=== PATIENT | female | born 1940 | race Caucasian/White ===

== ENCOUNTER 2020-12-12 08:46 | Outpatient (REF) | payer MEDICARE, SELFPAY ==
--- NOTE | ~2020-12-12 | MR_ITS ---
EXAMINATION: MR LUMBAR SPINE WITHOUT CONTRAST CLINICAL INFORMATION: Lumbosacral spinal stenosis. COMPARISON: MRI scan of the lumbar spine 09/10/2018. TECHNIQUE: MRI of the lumbar spine was obtained using routine sequences without contrast. FINDINGS: VERTEBRAL BODIES AND PARASPINAL STRUCTURES: There is a mild to moderate levoscoliosis. There is a mild anterolisthesis of L4 on L5. There is a retrolisthesis of L5 on S1, there is a mild leftward subluxation of L3 on L4. There is multilevel narrowing of intervertebral disc height throughout the lumbar spine with loss of signal. There are degenerative endplate contour changes with moderate edematous endplate signal seen toward the left at L4-L5, new compared to prior imaging. Vertebral body heights are maintained. There are no acute fractures. Overall, marrow signal is homogenous. The visualized retroperitoneal and pelvic structures are unremarkable. CONUS MEDULLARIS AND CAUDA EQUINA: Normal, terminating at the level of T12-L1. The lower thoracic spinal cord appears normal. The cauda equina nerve roots and filum terminale appear normal; the cauda equina nerve roots however are crowded at multiple levels due to spondylosis and facet arthropathy. SPINAL LEVELS: T11-T12: There is a posterior disc protrusion which is most prominent midline, with mild distortion of the thecal sac ventral to the conus. The neural foramina are patent bilaterally. T12-L1: There is mild bilateral facet arthropathy with ligamenta flava hypertrophy. There is a left foraminal disc protrusion impingement on the exiting left, which has developed since the prior study. There is no central stenosis. L1-L2: There is moderate bilateral facet arthropathy with ligamenta flava hypertrophy and facet joint effusions. There is a new central and left-sided disc protrusion with an extruded component extending into the left lateral recess of L1 with impingement on the traversing left L1 nerve root. There is marked narrowing of the left subarticular recess. The neural foramina are patent bilaterally. There is moderate central stenosis. L2-L3: There is moderate bilateral facet arthropathy. There is a broad-based posterior disc protrusion extending into the inferior neural foramina bilaterally without nerve root impingement. There is bilateral subarticular recesses. There is moderate central stenosis. L3-L4: There is moderate to severe bilateral facet arthropathy with ligamenta flava hypertrophy and facet joint effusions. There is a broad-based posterior disc protrusion extending far laterally on the right with impingement on the extraforaminal right L3 nerve root. There is narrowing of the bilateral subarticular recesses. There is severe central stenosis. L4-L5: There is severe bilateral facet arthropathy with ligamenta flava hypertrophy. There is a posterior disc with an extruded component centrally and toward the left, which markedly narrows the neural foramina, left greater than right. The disc protrusion extends far laterally on the left with impingement on the extraforaminal left L4 nerve root. There is marked compression of the thecal sac. There is severe central stenosis. L5-S1: There is moderate bilateral facet arthropathy. There is a broad-based posterior disc protrusion extending into the neural foramina bilaterally with impingement on the exiting L5 nerve roots. There is narrowing of the bilateral subarticular recesses with impingement on the traversing S1 nerve roots bilaterally. There is no central stenosis. MR/MR lumbar spine wo con IMPRESSION: 1. At L4-L5 there is facet arthropathy and there is a posterior disc protrusion/extrusion, which markedly narrows the neural foramina. The disc protrusion extends far laterally with impingement on the extra foraminal left L4 nerve root. There is severe central stenosis. 2. At L3-L4 there is facet arthropathy and there is a broad-based posterior disc protrusion extending far laterally without definite foraminal right L3 nerve root. There is narrowing of the subarticular recesses. There is severe central stenosis. 3. At L5-S1 is facet arthropathy and a broad-based posterior disc protrusion. There is extension into the neural foramina bilaterally with impingement on the exiting L5 nerve roots. There is also narrowing of the subarticular recesses bilaterally with impingement on the traversing S1 nerve roots bilaterally. At L1-L2 there is facet arthropathy and there is a new central and left-sided disc protrusion with an extruded component. There is narrowing of the left lateral recess of L1 with impingement traversing left L1 nerve root. Marked narrowing of the left subarticular recess.
== END 2020-12-12 08:47 | disposition home or self-care (01) ==
LOC: HO.MRI 08:46
PROVIDERS: Visit Provider Internal Medicine
DX: M48.07 Spinal stenosis, lumbosacral region (principal)
CPT/HCPCS: 72148

== ENCOUNTER 2021-01-14 09:58 | Outpatient (REF) | payer MEDICARE, SELFPAY ==
--- NOTE | 2021-01-14 14:17 | MHC.AU.ANO ---
Adult Audiological Evaluation Date of Visit: 01/14/21 Reason for Appointment: Patient suspects she may have hearing loss. She has noticed the most difficulty hearing in the car and hearing the television. Does patient feel they have a hearing loss?: Yes If Yes, Which Ear?: Both Ears When Was Hearing Difficulty First Noticed?: Around 2 years ago Has hearing been tested previously?: Yes Previous Hearing Test Results: At Dr. Loredo's office around 10 years ago- Results are not immediately available for review. Patient reports that at the time, she was told hearing aids were not needed. Hearing Handicap Inventory: HHIE SCORE: 18 Based on HHIE score, patient has: Mild to moderate perceived hearing handicap Ear History: Ear Deformity: None Reported Recent Ear Drainage: None Reported Recent Ear Pain: None Reported Family History of Hearing Loss?: No Recent Ear Infections: None Reported Ear Infections in Childhood: None Reported History of Ear Wax Buildup: None Reported Previous Ear Surgery: None Reported Bothersome Tinnitus/Ringing/Noises in Ears: None Reported Ear used on the phone: Right Ear Blocked/Full Sensation in Ear(s): None Reported History of occupational noise exposure?: No History: No Medical History: Medical History: High Blood Pressure Otoscopy: Right Ear: Unremarkable Left Ear: Unremarkable Tympanometry: Tympanometry performed due to: To assess integrity of the middle ear system Right Ear: Normal Middle Ear System (Type A) Left Ear: Normal Middle Ear System (Type A) Hearing Evaluation: Transducer(s) Used: Circumaural Headphones Method: Conventional Audiometry Stimuli Used: Pure Tones Right Ear: Description of Hearing: Normal sloping to severe sensorineural hearing loss Left Ear: Description of Hearing: Normal sloping to severe sensorineural hearing loss Speech Recognition Threshold (SRT): Method Used: Recorded Lists Stimuli Used: Spondee Words Right Ear: 35 dBHL Left Ear: 30 dBHL Word Discrimination: Method: Recorded Lists Word Lists Used: NU-6 Right Ear: 88% at 70 dBHL Left Ear: 88% at 65 dBHL Most Comfortable Level (MCL): Right Ear: 70 dBHL Left Ear: 65 dBHL QuickSIN: Tested binaurally at 65 dBHL: 6 dB SNR Loss, which suggests mild to moderately-elevated difficulty listening in noise Recommendations: Audiological re-evaluation in one year. Trial with amplification is recommended. Patient thinks she is ready for amplification, but would like to demo hearing instruments to be sure. At the moment, she is thinking she may only get a hearing aid for one ear. A pair of [employer]ca CorpeTableGrabber P50-13T Trial instruments (#[id number], [id number]) was provided for a demo. The basics of hearing aid care and use were discussed and practiced. Patient was encouraged to try using both hearing aids, as well as trying just the right and just the left, to see which set up she would prefer. A hearing aid follow-up was scheduled to see how the demo went and further discuss hearing aid options. Diagnosis: Primary Diagnosis: H90.3 Bilateral Sensorineural Hearing Loss Services Performed: Comprehensive Audiological Evaluation (CPT 50185), Tympanometry (CPT 62861) Signature: Provider: Horacio Melgar, CCC-A
== END 2021-01-14 09:59 | disposition home or self-care (01) ==
LOC: HO.SH 09:58
PROVIDERS: Visit Provider Internal Medicine
DX: H90.3 Sensorineural hearing loss, bilateral (principal)
CPT/HCPCS: 92557; 92567

== ENCOUNTER 2021-01-21 15:31 | Outpatient (REF) | payer SELFPAY | END 2021-01-21 15:32 | disposition home or self-care (01) | LOC: HO.HAP 15:31 | PROVIDERS: PCP Internal Medicine; Visit Provider Internal Medicine | DX: Z13.89 Encounter for screening for other disorder (principal) ==

== ENCOUNTER 2021-02-19 10:41 | Outpatient (REF) | payer SELFPAY ==
--- NOTE | 2021-02-19 12:42 | MHC.AU.HAS ---
Hearing Aid Evaluation Date of Visit: 02/19/21 Summary: Patient returned the loaner instruments. She reports she was primarily wearing the right hearing aid and has noticed significant benefit. She would like to go ahead with a right-sided instrument. Paid $350 deposit. Would like itemized receipt at the fitting to submit to her insurance. Hearing Aid Prescription: Based on the individual?s shared listening needs, communication environments, dexterity, desire for connectivity, and personal preferences, the following prescription for amplification has been made: Right ear: Endoscopy Registered Nurse: [employer]io Model: PollGroundeNavagis P70-13T Battery Size: 13 Color: P1 Asphalt Roller Person: 1M Action Taken/Action Needed: Hearing Instrument Fitting to be scheduled when materials arrive Primary Diagnosis: H90.3 Bilateral Sensorineural Hearing Loss Signature: Provider: Horacio Melgar, CCC-A
== END 2021-02-19 10:42 | disposition home or self-care (01) ==
LOC: HO.HAP 10:41
PROVIDERS: Visit Provider Internal Medicine
DX: Z46.1 Encounter for fitting and adjustment of hearing aid (principal); H90.3 Sensorineural hearing loss, bilateral
CPT/HCPCS: 92591

== ENCOUNTER 2021-03-06 10:13 | Outpatient (REF) | payer SELFPAY ==
--- NOTE | 2021-03-06 11:23 | MHC.AU.HAR ---
Hearing Instrument Fitting- Adult- Right Ear Date of Visit: 03/06/21 Hearing Instruments Dispensed: Right Ear: Biology Department Chair: [employer] Model: A-TEXeo P70-13T Serial Number: [id number] Repair Warranty: 05/19/2024 Loss and Damage Warranty: 05/19/2024 Service Plan: 05/19/2024 Battery Size: 13 Color: P1 Miter Operator: 1M Type of Dome: Small Vented Type of Wax Guard: Lakshmi Summary of Fitting: Feedback janitorial manager was run. Verifit performed and levels adjusted to better reach targets. Target gain at 100%. Patient was pleased with the sound of the instrument and did not feel additional changes were needed. Hearing aid care and use were discussed and demonstrated. Patient did not want the hearing aid paired to her phone at this time. Recommendations: A hearing instrument follow-up was scheduled. Please call our clinic with any questions or concerns. Paid $1250 balance. Signature: Provider: Horacio Melgar CCC-Marybeth
== END 2021-03-06 10:14 | disposition home or self-care (01) ==
LOC: HO.HAP 10:13
PROVIDERS: Visit Provider Internal Medicine
DX: Z46.1 Encounter for fitting and adjustment of hearing aid (principal); H90.3 Sensorineural hearing loss, bilateral
CPT/HCPCS: V5257

== ENCOUNTER 2022-12-30 11:50 | Outpatient (REF) | payer SELFPAY | END 2022-12-30 11:51 | disposition home or self-care (01) | LOC: HO.HAP 11:50 | PROVIDERS: Visit Provider Internal Medicine | DX: Z13.89 Encounter for screening for other disorder (principal) ==

== ENCOUNTER 2022-12-31 11:39 | Outpatient (REF) | payer SELFPAY | END 2022-12-31 11:40 | disposition home or self-care (01) | LOC: HO.HAP 11:39 | PROVIDERS: Visit Provider Internal Medicine | DX: Z13.89 Encounter for screening for other disorder (principal) ==

== ENCOUNTER 2024-02-29 12:43 | Outpatient (AMB) | payer MEDICARE, SELFPAY ==
--- NOTE | 2024-02-29 12:45 | MHC.OFFWIV ---
Intake Vital Signs 02/29/24 12:49 Height 5 ft Weight 188 lb BMI 36.7 BP 160/80 H Blood Pressure Location Rt brachial Position Sitting Pulse 74 Pulse Source Pulse Oximeter Temp 98.5 F Temp Source Oral Pulse Oximetry (%) 96 Oxygen Delivery Method Room Air Intake Visit Reasons: Red fawad lower left leg Intake Note: pt is here c/o red fawad on Lower LT leg Patient Tobacco Use Status: Never used Tobacco Allergies No Known Allergies [No Known Allergies*] Allergy (Verified 02/29/24 12:45) Do you need a note to return to daycare/school/sports/work: No HPI HPI Comments History of Present Illness Details Patient is an 83-year-old female complaining of a rash on the front of her left lower leg. She states it has been there for a few days. She states it does not feel warm and it does not itch. She has not tried to apply anything to make it better. Nothing seems to make it worse. PFSH Social History Patient Tobacco Use Status: Never used Tobacco Review of Systems Const All systems reviewed & are unremarkable except as noted in HPI and below Physical Exam Vital Signs: Last Vital Signs Temp 98.5 F 02/29/24 12:49 Pulse 74 02/29/24 12:49 BP 160/80 H 02/29/24 12:49 Pulse Ox 96 02/29/24 12:49 Oxygen Delivery Method Room Air 02/29/24 12:49 BMI result Body Mass Index 36.7 Const General: cooperative, healthy appearing, comfortable, no acute distress and well developed Orientation/consciousness: patient oriented x3 Limitations: no limitations Eyes General: appearance normal, both eyes and all related structures Resp Effort & Inspection: normal respiratory effort and able to speak in complete sentences Skin Other: small area 2cm x 1cm area of raised papules on anterior left leg, no warmth noted, no signs of infection noted, no ecchymosis Neuro General: patient oriented x3 Assessment & Plan Assessment & Plan (1) Rash: Code(s): R21 - Rash and other nonspecific skin eruption Plan: Marked area with surgical pen and date, advised patient to track and if it gets larger and warm, I told her to call me and I will call in a prescription for an antibiotic. As of today, there does not seem like a cellulitis based on physical exam. She should monitor and do as above. Plan see above Coding Level of Care Code New Pt Level 3 (36905) Diagnoses Rash R21
[2024-02-29 12:49] VITALS: BP 160/80; PULSE 74; TEMP 36.9; O2SAT 96; BMI 36.7
== END 2024-02-29 13:51 | disposition home or self-care (01) ==
PROVIDERS: PCP Internal Medicine; Visit Provider Physician Assistant
DX: R21 Rash and other nonspecific skin eruption (principal)
CPT/HCPCS: 99203

== ENCOUNTER 2024-12-26 10:18 | Outpatient (REF) | payer SELFPAY ==
--- NOTE | 2024-12-27 11:16 | MHC.AU.HA3 ---
Hearing Instrument Follow-Up- Binaural Date of Visit: 12/26/24 Right Ear: Make, Model, Color, Serial Number: [id number] Order Fulfillment Specialist Repair Warranty: 05/19/2024 Order Fulfillment Specialist Loss and Damage Warranty: 05/19/2024 [facility] Service Plan: 05/19/2024 Battery Size: 13 Fall Internship/Slim Tube: 1M Earmold/Dome/CShell/SlimTip:Small vented Type of Wax Guard: CeruShield Follow-Up Summary: Right aid dropped off c/o battery falling out. Noted battery was inserted upside down upon arrival. Also found significant wax on dome and wax guard occluded. Cleaned aid. Replaced dome, tail, and wax guard. Listening check positive. Found no issue with battery door function with battery inserted properly. Recommendations: Recommendations: Hearing instrument follow-up or maintenance as needed. Diagnosis Code(s): Primary Diagnosis: H90.3 Bilateral Sensorineural Hearing Loss Signature: Provider: Adrian Hinton, CCC-A
== END 2024-12-26 10:19 | disposition home or self-care (01) ==
LOC: HO.HAP 10:18
PROVIDERS: Visit Provider Internal Medicine
DX: Z13.89 Encounter for screening for other disorder (principal)

== ENCOUNTER 2024-12-31 10:47 | Outpatient (REF) | payer SELFPAY | END 2024-12-31 10:48 | disposition home or self-care (01) | LOC: HO.SH 10:47 | PROVIDERS: Visit Provider Internal Medicine | DX: Z01.118 Encounter for examination of ears and hearing with other abnormal findings (principal); H90.3 Sensorineural hearing loss, bilateral | CPT/HCPCS: 92593; V5266 ==